=== PATIENT | male | born 1980 | race Caucasian/White ===

== ENCOUNTER → 2016-11-26 | Outpatient (CLI) | payer SELFPAY | LOC: M OUTALCOH 12:46 | PROVIDERS: ATTEND Psychiatry & Neurology Psychiatry | DX: F11.20 Opioid dependence, uncomplicated (principal); F14.20 Cocaine dependence, uncomplicated ==

== ENCOUNTER → 2021-10-31 | Outpatient (CLI) | payer SELFPAY | LOC: M OUTALCOH 07:27 | PROVIDERS: ATTEND Psychiatry & Neurology Psychiatry | DX: F10.10 Alcohol abuse, uncomplicated (principal) ==

== ENCOUNTER 2021-11-07 09:20 | Outpatient (RCR) | payer SELFPAY ==
[2021-11-14] MEDS ORDERED: KETO10TAB PO (10:02)
== END 2021-11-17 ==
LOC: M OUTALCOH 09:20
PROVIDERS: ATTEND Psychiatry & Neurology Psychiatry
DX: Z03.89 Encounter for observation for other suspected diseases and conditions ruled out (principal)

== ENCOUNTER 2021-11-14 07:58 | Emergency (ER) | payer SELFPAY ==
[~2021-11-14] VITALS: Ht 180.3 cm; Wt 102.3 kg
[2021-11-14] MEDS ORDERED: IBUPROFEN 800 MG TAB PO ONE (09:05)
[2021-11-14] MEDS ORDERED: ACETAMINOPHEN TAB 650MG DOSE (2X325MG) PO ONE (09:05)
[2021-11-14] MEDS ORDERED: LIDOCAINE 5% (LIDODERM) PATCH TD ONE (09:05)
[2021-11-14] MEDS ORDERED: KETO10TAB PO (10:02)
[2021-11-14 10:38] VITALS: BP 128/74
[2021-11-14] MEDS ORDERED: **NOTE PATIENT COMMENT** MISC XX SCH (21:00)
== END 2021-11-14 10:41 | disposition home or self-care (01) ==
LOC: M ED 07:58
DX: S30.0XXA Contusion of lower back and pelvis, initial encounter (principal); W10.8XXA Fall (on) (from) other stairs and steps, initial encounter; Z79.899 Other long term (current) drug therapy; Y92.009 Unspecified place in unspecified non-institutional (private) residence as the place of occurrence of the external cause; Y93.9 Activity, unspecified; Y99.9 Unspecified external cause status

== ENCOUNTER → 2023-04-30 | Outpatient (REF) | payer BC, OTHER ==
[~2023-04-30] MED LIST: KETO10TAB PO
== END ==
LOC: M LAB REF 11:30
PROVIDERS: ATTEND Surgery
DX: L72.3 Sebaceous cyst (principal)

== ENCOUNTER → 2023-05-02 | Outpatient (CLI) | payer OTHER, BC | LOC: M RAD 16:06 | PROVIDERS: ATTEND Nurse Practitioner Family | DX: J34.89 Other specified disorders of nose and nasal sinuses (principal) ==

== ENCOUNTER 2023-11-18 09:57 | Day surgery (SDC) | payer OTHER ==
[~2023-11-18] VITALS: Ht 180.3 cm; Wt 126.1 kg
[~2023-11-18 09:57] MED LIST changes: +OMEP-173 PO
[2023-11-18] MEDS: LR 1,000 ML IV SCH (10:33)
[2023-11-18] MEDS ORDERED: propofoL 200 MG/20 ML VIAL As Ordered ONE (11:50)
[2023-11-18] MEDS ORDERED: LIDOCAINE 2% 100MG/5ML SDV (FOR ANES.) As Ordered ONE (11:50)
[2023-11-18] MEDS ORDERED: dexmedeTOMIDine (4MCG/ML)200MCG/50ML BTL (PRECEDEX) As Ordered ONE (11:50)
[2023-11-18] MEDS ORDERED: ROCURONIUM BROMIDE 50MG/5ML VIAL As Ordered ONE (11:50)
[2023-11-18] MEDS ORDERED: ACETAMINOPHEN 1000MG 100ML IV BAG As Ordered ONE (11:50)
[2023-11-18] MEDS ORDERED: ONDANSETRON 4MG 2ML VIAL As Ordered ONE (11:50)
[2023-11-18] MEDS ORDERED: fentaNYL 100 MCG/2 ML INJECTION As Ordered ONE (11:50)
[2023-11-18] MEDS ORDERED: MIDAZOLAM INJ 2MG/2ML VIAL As Ordered ONE (11:50)
[2023-11-18] MEDS ORDERED: SUGAMMADEX SODIUM 500 MG/5 ML VIAL (BRIDION) As Ordered ONE (11:50)
[2023-11-18] MEDS ORDERED: HYDROmorphone HCL 2MG/ML 1ML VIAL As Ordered ONE (12:07)
[2023-11-18] MEDS: OXYMETAZOLINE 0.05% NASAL SPRAY (AFRIN) As Ordered ONE (12:07)
[2023-11-18] MEDS ORDERED: HYDROCORTISONE 100MG/2ML VIAL As Ordered ONE (12:07)
[2023-11-18] MEDS: COCAINE 4% 4ML NASAL SOLUTION BTL As Ordered ONE (12:08)
[2023-11-18] MEDS: LIDOCAINE W/EPINEPHRINE 1% 20ML VIAL As Ordered ONE (12:15)
[2023-11-18] MEDS ORDERED: LABETALOL 100MG/20ML VIAL As Ordered ONE (12:25)
[2023-11-18] MEDS ORDERED: hydrALAZINE 20MG/ML 1ML VIAL As Ordered ONE (12:58)
[2023-11-18] MEDS ORDERED: fentaNYL 100 MCG/2 ML INJECTION IV PRN (14:05)
[2023-11-18] MEDS ORDERED: HYDROMORPHONE HCL 0.5 MG/ 0.5 ML SYRINGE IV PRN (14:05)
[2023-11-18] MEDS ORDERED: LR 1,000 ML IV SCH (14:05)
[2023-11-18] MEDS: oxyCODONE 5MG TAB PO PRN (14:41)
[2023-11-18] MEDS: ONDANSETRON 4MG 2ML VIAL IV PRN (14:44)
[2023-11-18 16:15] VITALS: BP 154/86; TEMP 98.1; O2SAT 96
== END 2023-11-18 16:31 | disposition home or self-care (01) ==
LOC: M SDC 09:57
PROVIDERS: ATTEND Otolaryngology
DX: J32.8 Other chronic sinusitis (principal); K21.9 Gastro-esophageal reflux disease without esophagitis; Z87.891 Personal history of nicotine dependence; Z79.899 Other long term (current) drug therapy
CPT/HCPCS: 31253; 31267; 88305; C9143; J0131; J0360; J1100; J1170; J1920; J2250; J2405; J3010